=== PATIENT | male | born 1985 | race Caucasian/White ===

== ENCOUNTER 2016-12-06 18:52 | Emergency (ER) | payer SELFPAY ==
[~2016-12-06 18:52] MED LIST: COMBIVENT RESPIM4 GM IH; DELTASONE DPS10 MG; GLUCOPHAGE-DPS500 MG PO; HABITROL DPS21 MG TP; INVANZ1 GM IV; LEVAQUIN DPS500 MG PO; NORVASC5 MG PO; PEPCID DPS20 MG PO; ZESTORETIC 10/11 TAB PO
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
== END 2016-12-06 20:32 | disposition home or self-care (01) ==
LOC: ER 18:52
DX: S00.33XA Contusion of nose, initial encounter (principal); S20.211A Contusion of right front wall of thorax, initial encounter; Z91.02 Food additives allergy status; Z79.899 Other long term (current) drug therapy; Y04.0XXA Assault by unarmed brawl or fight, initial encounter